=== PATIENT | male | born 1985 | race African-American/Black ===

== ENCOUNTER 2019-10-25 10:24 | Emergency (ER) | payer BC ==
[~2019-10-25] VITALS: Ht 172.7 cm; Wt 69.0 kg
[2019-10-25] MEDS: MORPHINE SULFATE 4 MG/ML CPJ (NOT FOR IM USE) IV STA (11:00)
[2019-10-25] MEDS: SODIUM CHLORIDE 0.9% 1,000 ML IV ONE (12:25)
[2019-10-25] MEDS: ONDANSETRON HCL 4MG/2ML INJ IV STA (12:25)
[2019-10-25 12:26] LABS: CLARITY URINE CLEAR (CLEAR); COLOR URINE DARK YELLOW (YELLOW); KETONES URINE 1+ (NEGATIVE); LEUKOCYTE ESTERASE URINE NEGATIVE (NEGATIVE); NITRITE URINE NEGATIVE (NEGATIVE); OCCULT BLOOD URINE NEGATIVE (NEGATIVE); PROTEIN URINE TRACE (NEGATIVE)
[2019-10-25] MEDS: FAMOTIDINE 20MG/2ML VIAL IV STA (12:26)
[2019-10-25 12:29] LABS: BASOPHILS % 0.3 % (0.0-2.0); HEMATOCRIT. 43.4 % (42.0-52.0); HEMOGLOBIN. 14.8 g/dL (14.0-18.0); LYMPHOCYTES % 9.7 % (20.0-50.0); MEAN CORPUSCULAR HEMOGLOBIN 33.2 pg (28.0-32.0); MEAN CORPUSCULAR VOLUME 97.2 fL (80.0-94.0); MEAN PLATELET VOLUME 10.4 fl (7.4-10.4); MONOCYTES % 3.7 % (2.0-8.0); NEUTROPHILS % 86.3 % (40.0-76.0); PLATELET 169 x1000/uL (130-400); RED BLOOD CELL COUNT 4.47 mill/uL (4.7-6.1); RED CELL DISTRIBUTION WIDTH 12.4 % (11.6-14.6)
[2019-10-25 12:35] LABS: INR 1.1; PROTHROMBIN TIME 11.6 sec (9.6-11.0)
[2019-10-25 12:40] LABS: ETHANOL BLOOD < 10 mg/dL
[2019-10-25 12:58] LABS: *AMPHETAMINES SCREEN URINE NEGATIVE (NEGATIVE); *BARBITURATES SCREEN URINE NEGATIVE (NEGATIVE); *BENZODIAZEPINES SCREEN URINE NEGATIVE (NEGATIVE); *COCAINE SCREEN URINE NEGATIVE (NEGATIVE); METHADONE URINE SCREEN NEGATIVE (NEGATIVE); OPIATES URINE SCREEN NEGATIVE (NEGATIVE)
[2019-10-25 12:59] LABS: CANNABINOID URINE SCREEN PRESUMTIVE POSITIVE (NEGATIVE); PHENCYCLIDINE URINE SCREEN NEGATIVE (NEGATIVE)
[2019-10-25] MEDS: ONDANSETRON HCL 4MG/2ML INJ IV ONE (13:00)
[2019-10-25] MEDS: MORPHINE SULFATE 4 MG/ML CPJ (NOT FOR IM USE) IV ONE (13:00)
[2019-10-25 13:07] LABS: CHLORIDE 104 mEq/L (98-107)
[2019-10-25 14:37] VITALS: BP 107/66
== END 2019-10-25 15:00 | disposition home or self-care (01) ==
LOC: ER 10:24
DX: R10.13 Epigastric pain (principal); R11.2 Nausea with vomiting, unspecified
CPT/HCPCS: 36415; 71045; 74176; 80053; 80305; 80320; 81003; 83690; 85025; 85610; 96361; 96374; 96375; 99284; J2405; J3490; J7030; G0480